=== PATIENT | female | born 2000 ===

== ENCOUNTER 2020-06-04 05:55 | Outpatient (RCR) | payer OTHER ==
[~2020-06-04] VITALS: Ht 160 cm; Wt 62.2 kg
== END 2020-06-04 14:58 | disposition home or self-care (01) ==
LOC: PREOP 05:55 → EDSTATUS 12:00 → PREOP 14:58
PROVIDERS: ATTEND Otolaryngology Otolaryngology/Facial Plastic Surgery
DX: Z01.818 Encounter for other preprocedural examination (principal)